=== PATIENT | male | born 1980 | race Hispanic/Latino ===

== ENCOUNTER → 2019-02-17 | Outpatient (CLI) | payer OTHER ==
--- NOTE | 2019-02-17 12:54 | Diagnostic Imaging Report ---
EXAMINATION: CHEST 2 VIEWS INDICATION: Bronchitis. COMPARISON: None FINDINGS: TUBES and LINES: None. LUNGS: Portions of the lung apices are excluded from the radiograph. The lungs are well inflated. There is biapical pleural-parenchymal opacity, suggestive of prior granulomatous disease. No evidence of pneumonia or pulmonary edema. There is mild bronchial wall thickening. PLEURA: No pleural effusion or pneumothorax. HEART AND MEDIASTINUM: The cardiomediastinal silhouette is unremarkable. BONES AND SOFT TISSUES: No acute osseous abnormality. UPPER ABDOMEN: No free air under the diaphragm. IMPRESSION: Mild bronchial wall thickening, which may reflect bronchitis. No evidence of pneumonia. Signed by: Dr. Clarissa Acosta MD on 02/17/2019 12:51 PM
== END ==
LOC: RAD 10:34
PROVIDERS: ATTEND Family Medicine
DX: J40 Bronchitis, not specified as acute or chronic (principal)
CPT/HCPCS: 71046